=== PATIENT | female | born 1950 | race Native Hawaiian/Other Pacific Islander ===

== ENCOUNTER 2017-02-03 07:52 | Outpatient (CLI) | payer OTHER | END 2017-02-03 10:00 | disposition home or self-care (01) | LOC: RAD 07:52 → MAMMO 08:30 → RAD 10:00 | DX: Z12.31 Encounter for screening mammogram for malignant neoplasm of breast (principal); M81.0 Age-related osteoporosis without current pathological fracture | CPT/HCPCS: G0202-TC ==

== ENCOUNTER 2017-09-07 14:08 | Outpatient (CLI) | payer OTHER ==
[2017-09-07 14:44] LABS: PLATELET COUNT 172 K/uL (152-353)
[2017-09-07 14:56] LABS: POTASSIUM 4.1 mmol/L (3.6-5.2)
== END 2017-09-08 14:08 | disposition home or self-care (01) ==
LOC: LAB 14:08
PROVIDERS: Nurse Practitioner Family
DX: I10 Essential (primary) hypertension (principal); F32.89 Other specified depressive episodes; G47.09 Other insomnia; Z79.899 Other long term (current) drug therapy; Z51.81 Encounter for therapeutic drug level monitoring
CPT/HCPCS: 80053; 80061; 82306; 82607; 83036; 84439; 84443; 85027

== ENCOUNTER 2018-12-05 16:15 | Outpatient (CLI) | payer OTHER | END 2018-12-05 22:56 | disposition home or self-care (01) | LOC: RAD 16:15 | DX: Z79.899 Other long term (current) drug therapy (principal); M25.572 Pain in left ankle and joints of left foot; M79.672 Pain in left foot ==

== ENCOUNTER 2020-01-17 22:25 | Emergency (ER) | payer OTHER ==
[~2020-01-17] VITALS: Ht 152.4 cm; Wt 63.5 kg
[2020-01-18 02:33] LABS: POTASSIUM 4.2 mmol/L (3.6-5.2)
[2020-01-18 02:34] LABS: PLATELET COUNT 131 K/uL (152-353)
[2020-01-18 02:43] LABS: PARTIAL THROMBOPLASTIN TIME 21.2 SECONDS (24.5-33.6)
[2020-01-18 03:41] VITALS: TEMP 98.9
[2020-01-18 03:45] VITALS: BP 106/44
== END 2020-01-18 03:45 | disposition short-term general hospital (02) ==
LOC: ED 22:25
PROVIDERS: Hospitalist
PROC: 0RSJXZZ Reposition Right Shoulder Joint, External Approach (ICD-10-PCS; principal; 2020-01-17)
DX: S43.084A Other dislocation of right shoulder joint, initial encounter (principal); W18.39XA Other fall on same level, initial encounter; Y92.89 Other specified places as the place of occurrence of the external cause
CPT/HCPCS: 36415; 80048; 85027; 85610; 85730; 96360; 96365; 96374; 96375; 96376; 99284; J1170; J1885; J2060; J2360; J2405